=== PATIENT | male | born 1950 | race Caucasian/White ===

== ENCOUNTER 2022-01-10 06:54 | Day surgery (SDC) | payer OTHER ==
[2022-01-07 09:22] LABS: BASOPHILS % (AUTO) 0.5 % (0.0-5.0); EOSINOPHILS % (AUTO) 4.3 % (0.0-8.0); HEMATOCRIT 48.6 % (42-54); LYMPHOCYTES % (AUTO) 22.7 % (21.0-51.0); MEAN CORPUSCULAR HEMOGLOBIN 31.2 pg (27.0-33.0); MEAN CORPUSCULAR HGB CONC 33.1 g/dL (32.0-36.0); MEAN CORPUSCULAR VOLUME 94.2 fL (79-99); MONOCYTES % (AUTO) 9.4 % (3.0-13.0); NEUTROPHILS % (AUTO) 62.9 % (40.0-77.0); PLATELET COUNT (AUTO) 171 K/uL (130-400); RED BLOOD CELL COUNT(AUTO) 5.16 MIL/uL (4.50-6.20); RED CELL DISTRIBUTION WIDTH 14.2 % (11.0-15.5); WHITE BLOOD COUNT (AUTO) 6.1 K/uL (4.8-10.8)
[2022-01-07 09:32] LABS: INR 1.02 (0.85-1.15); PROTHROMBIN TIME 11.1 SEC (9.6-11.6)
[2022-01-07 09:33] LABS: CREATININE 1.3 mg/dL (0.5-1.5); PARTIAL THROMBOPLASTIN TIME 30.2 SEC (26.3-35.5); POTASSIUM 4.6 mmol/L (3.5-5.1)
[2022-01-07 10:55] VITALS: BP 153/85
[2022-01-10] VITALS (10 sets, daily range): BP systolic 130–152; BP diastolic 71–114
[~2022-01-10] VITALS: Ht 182.9 cm; Wt 125.2 kg
[~2022-01-10 06:54] MED LIST: AMIO200T68 PO; APIX5TAB PO; ATOR20TA65 PO; CETI10TA57 PO; CYAN250T3 PO; DILT120T PO; ISOS30TA92 PO; METO100T14 PO; OMEP20CA12 PO; TRAM50TA4 PO
[2022-01-10] MEDS ORDERED: 0.9%NACL 1000ML 1,000 ML IV SCH (08:00)
== END 2022-01-10 11:05 | disposition home or self-care (01) ==
LOC: CLH 06:54 → DAH 06:54 → CLH 11:05
PROVIDERS: ATTEND Internal Medicine Cardiovascular Disease
DX: I48.19 Other persistent atrial fibrillation (principal); I44.0 Atrioventricular block, first degree; K21.9 Gastro-esophageal reflux disease without esophagitis; Z79.01 Long term (current) use of anticoagulants; Z79.899 Other long term (current) drug therapy; Z86.73 Personal history of transient ischemic attack (TIA), and cerebral infarction without residual deficits; Z95.0 Presence of cardiac pacemaker; Z88.0 Allergy status to penicillin
CPT/HCPCS: 80048; 85025; 85610; 85730; 87426; 36415; 92960; 93005 ×2; A4223 ×3; J7030; A4215; A7002; A4222; A4221; A4663; A4216; A4606; 99152

== ENCOUNTER → 2022-08-26 | Outpatient (CLI) | payer OTHER ==
[~2022-08-26] MED LIST changes: +AEC81 PO; +ATOR40TA71 PO; +IOHEXOL 350 MG/ML 100ML INFUS..BTL IV ONE
== END | disposition home or self-care (01) ==
LOC: RAH 11:34
PROVIDERS: ATTEND Internal Medicine Cardiovascular Disease
DX: I48.19 Other persistent atrial fibrillation (principal)
CPT/HCPCS: 71275; Q9967

== ENCOUNTER 2022-09-01 06:01 | Observation (INO) | payer OTHER ==
[2022-08-30 16:06] VITALS: BP 162/88
[2022-08-30 16:30] LABS: BASOPHILS % (AUTO) 0.6 % (0.0-5.0); EOSINOPHILS % (AUTO) 1.6 % (0.0-8.0); HEMATOCRIT 43.3 % (42-54); LYMPHOCYTES % (AUTO) 16.5 % (21.0-51.0); MEAN CORPUSCULAR HEMOGLOBIN 33.4 pg (27.0-33.0); MEAN CORPUSCULAR HGB CONC 32.3 g/dL (32.0-36.0); MEAN CORPUSCULAR VOLUME 103.3 fL (79-99); PLATELET COUNT (AUTO) 182 K/uL (130-400); RED BLOOD CELL COUNT(AUTO) 4.19 MIL/uL (4.50-6.20); RED CELL DISTRIBUTION WIDTH 15.7 % (11.0-15.5); WHITE BLOOD COUNT (AUTO) 6.3 K/uL (4.8-10.8)
[2022-08-30 16:43] LABS: CREATININE 1.8 mg/dL (0.5-1.5); POTASSIUM 5.3 mmol/L (3.5-5.1)
[2022-08-30 16:45] LABS: INR 1.03 (0.85-1.15); PROTHROMBIN TIME 11.2 SEC (9.6-11.6)
[2022-08-30 16:47] LABS: PARTIAL THROMBOPLASTIN TIME 28.7 SEC (26.3-35.5)
[~2022-09-01] VITALS: Ht 182.9 cm; Wt 126.6 kg
[2022-09-01] VITALS (18 sets, daily range): BP systolic 97–156; BP diastolic 52–86
[~2022-09-01 06:01] MED LIST changes: +0.9% NACL 500ML IV.SOLN 500 ML IV SCH; -ATOR20TA65 PO; -IOHEXOL 350 MG/ML 100ML INFUS..BTL IV ONE; -TRAM50TA4 PO
[2022-09-01] MEDS ORDERED: 0.9%NACL 1000ML 1,000 ML IV ONE (06:24)
[2022-09-01] MEDS ORDERED: ROCURONIUM 10MG/1ML SYR 10 MG/ML ML ONE (07:12)
[2022-09-01] MEDS ORDERED: FENTANYL CITRATE PF 50 MCG/1 ML 2ML VIAL ONE (07:13)
[2022-09-01] MEDS ORDERED: PROPOFOL 10 MG/ML 20ML VIAL IV ONE (07:13)
[2022-09-01] MEDS ORDERED: HEPARIN 10,000 UNIT/10ML (1,000 UNIT/ML) VIAL ONE ×2 (07:20→08:47)
[2022-09-01] MEDS ORDERED: LIDOCAINE HCL 1% MDV 50ML VIAL ONE (07:20)
[2022-09-01] MEDS ORDERED: PHENYLEPHRINE HCL 10 MG/ML 1ML VIAL IV ONE (07:27)
[2022-09-01] MEDS ORDERED: ISOPROTERENOL HCL 0.2 MG/ML AMP/VIAL/BAG ONE (10:51)
[2022-09-01] MEDS ORDERED: PROTAMINE SULFATE 10 MG/ML 25ML VIAL IV ONE (11:13)
[2022-09-01] MEDS ORDERED: IOHEXOL-350 50ML VIAL IV ONE (11:26)
[2022-09-01] MEDS ORDERED: PANTOPRAZOLE 40 MG TAB DR PO SCH (13:00)
[2022-09-01] MEDS: SUCRALFATE 1 GM TABLET PO SCH ×2 (13:27→17:54)
[2022-09-01] MEDS ORDERED: ISOSORBIDE MONO 30MG SR TAB PO SCH (21:00)
[2022-09-01] MEDS ORDERED: ATORVASTATIN 40 MG TABLET PO SCH (21:00)
[2022-09-01] MEDS ORDERED: METOPROLOL TARTRATE 50 MG PO SCH (21:00)
[2022-09-01] MEDS: METOPROLOL TARTRATE 50 MG TAB PO SCH ×2 (21:00→21:11)
[2022-09-01] MEDS: APIXABAN 5 MG TABLET PO SCH (21:10)
[2022-09-01] MEDS: ASPIRIN 81 MG EC TAB PO SCH (21:11)
[2022-09-02 00:04] VITALS: BP 129/69
[2022-09-02] MEDS: SUCRALFATE 1 GM TABLET PO SCH ×3 (00:18→11:27)
[2022-09-02 03:38] VITALS: BP 133/67
[2022-09-02] MEDS ORDERED: TRAMADOL HCL 50 MG TABLET PO ONE (05:00)
[2022-09-02 07:10] VITALS: BP 141/74
[2022-09-02] MEDS: APIXABAN 5 MG TABLET PO SCH (08:06)
[2022-09-02] MEDS: METOPROLOL TARTRATE 50 MG TAB PO SCH (08:06)
[2022-09-02] MEDS: ASPIRIN 81 MG EC TAB PO SCH (08:06)
[2022-09-02] MEDS ORDERED: NON-FORMULARY MEDICATION 1 EACH (Cetirizine HCl 10 MG) PO SCH (09:00)
[2022-09-02] MEDS ORDERED: DILTIAZEM 120MG SR CAP PO SCH (09:00)
[2022-09-02] MEDS ORDERED: SUCR1ORA15 PO (09:00)
[2022-09-02] MEDS ORDERED: NON-FORMULARY MEDICATION 1 EACH (Diltiazem HCl 120 MG) PO SCH (09:00)
[2022-09-02] MEDS ORDERED: CETIRIZINE HCL 5 MG TABLET PO SCH (09:00)
[2022-09-02] MEDS ORDERED: PANTOPRAZOLE 40 MG TAB DR PO SCH (09:00)
[2022-09-02 11:00] VITALS: BP 132/72
== END 2022-09-02 13:11 | disposition home or self-care (01) ==
LOC: DAH 06:01 → DAHIP 06:02 → 2DH 13:40
PROVIDERS: ADMIT Internal Medicine Cardiovascular Disease; ATTEND Internal Medicine Cardiovascular Disease
DX: I48.0 Paroxysmal atrial fibrillation (principal); Z20.822 Contact with and (suspected) exposure to COVID-19; Z79.899 Other long term (current) drug therapy
CPT/HCPCS: 80048; 85025; 85610; 85730; 87426; 36415 ×2; 93005 ×2; 93622; 93623; 93656; 93657; 85347 ×7; A4215 ×2; A4223 ×3; A4222; A4221; A4663; A4216; A4606; C1894 ×4; A4344; C1732 ×2; C1893; C1731; C1760; A4649 ×2; G0378 ×25; J7030; J3490 ×2; J2720; J1644 ×3; J2704; J2370; Q9967; J3010